=== PATIENT | male | born 2000 | race Hispanic/Latino ===

== ENCOUNTER 2024-08-15 19:31 | Observation (INO) | payer SELFPAY ==
[~2024-08-15] VITALS: Ht 177.8 cm; Wt 86.2 kg
[~2024-08-15 19:31] MED LIST: ONDANSETRON ODT4 MG PO
[2024-08-15 19:43] VITALS: PULSE 110; RESP 18; TEMP 98
[2024-08-15] MEDS ORDERED: D5.45%NS/KCL 20MEQ 1,000 ML IV SCH (21:15)
[2024-08-15] MEDS ORDERED: Morphine 2mg Syringe 2 MG/ML SYR IV PRN (21:15)
[2024-08-15] MEDS: ONDANSETRON HCL INJ 2MG/ML 2ML 2 MG/ML VIAL IV STA (22:00)
[2024-08-15] MEDS: FAMOTIDINE 20 MG/2 ML VIAL IV STA (22:00)
[2024-08-15] MEDS: SODIUM CHLORIDE 0.9% 1000ML 1,000 ML IV ONE (22:00)
[2024-08-15 23:52] VITALS: BP 151/89; PULSE 72; RESP 18; TEMP 97.4; O2SAT 100
[2024-08-15] MEDS: SODIUM CHLORIDE 0.9% 1000ML 1,000 ML IV SCH (23:58)
[2024-08-16] VITALS (7 sets, daily range): BP systolic 123–151; BP diastolic 66–89; PULSE 63–81; RESP 18–22; TEMP 97.4–98.6; O2SAT 99–100
[2024-08-16] MEDS: ONDANSETRON HCL INJ 2MG/ML 2ML 2 MG/ML VIAL IV PRN (02:21)
[2024-08-16 05:26] LABS: BASOPHILS % 0.3 % (0.0-1.0); HEMATOCRIT 48.8 % (38.2-49.6); HEMOGLOBIN 16.1 g/dL (14.0-18.0); LYMPHOCYTES # (AUTO) 2.7 (1.0-3.2); LYMPHOCYTES % 17.4 % (18.0-39.1); MEAN CORPUSCULAR HEMOGLOBIN 29.8 pg (28-32); MEAN CORPUSCULAR VOLUME 90.2 fL (81-99); MONOCYTES # (AUTO) 1.9 (0.2-0.8); MONOCYTES % 11.9 % (4.4-11.3); NEUTROPHILS # (AUTO) 10.9 (2.1-6.9); PLATELET COUNT 280 x10e3/uL (140-360); RED BLOOD COUNT 5.41 x10e6/uL (4.3-5.7); RED CELL DISTRIBUTION WIDTH 12.3 % (11.7-14.4)
[2024-08-16] MEDS: SODIUM CHLORIDE 0.9% 1000ML 1,000 ML IV ONE (07:21)
[2024-08-16 08:53] LABS: ALBUMIN 4.5 g/dL (3.5-5.0); ALBUMIN/GLOBULIN RATIO 1.3 (0.8-2.0); ANION GAP 20.6 mmol/L (8-16); BILIRUBIN,TOTAL 1.9 mg/dL (0.2-1.2); CALCIUM 9.4 mg/dL (8.4-10.2); CREATININE, SERUM 1.18 mg/dL (0.72-1.25); POTASSIUM 3.6 mmol/L (3.5-5.1); TOTAL PROTEIN 7.9 g/dL (6.5-8.1)
[2024-08-17] VITALS: BP 100/48; PULSE 63; RESP 16; TEMP 97.7; O2SAT 97
[2024-08-17 05:40] LABS: BASOPHILS % 0.5 % (0.0-1.0); EOSINOPHILS # (AUTO) 0.1 (0.0-0.4); HEMATOCRIT 44.6 % (38.2-49.6); LYMPHOCYTES # (AUTO) 3.4 (1.0-3.2); LYMPHOCYTES % 40.3 % (18.0-39.1); MEAN CORPUSCULAR HEMOGLOBIN 29.6 pg (28-32); MEAN CORPUSCULAR HGB CONC 33.6 g/dL (31-35); MONOCYTES % 12.3 % (4.4-11.3); NEUTROPHILS # (AUTO) 3.8 (2.1-6.9); NEUTROPHILS % 45.4 % (38.7-80.0); PLATELET COUNT 199 x10e3/uL (140-360); RED BLOOD COUNT 5.07 x10e6/uL (4.3-5.7); RED CELL DISTRIBUTION WIDTH 12.3 % (11.7-14.4); WHITE BLOOD COUNT 8.32 x10e3/uL (4.8-10.8)
[2024-08-17 05:57] VITALS: BP 120/72; PULSE 53; RESP 19; TEMP 99.3; O2SAT 100
[2024-08-17 06:28] LABS: ALBUMIN 3.7 g/dL (3.5-5.0); ALBUMIN/GLOBULIN RATIO 1.4 (0.8-2.0); ANION GAP 13.5 mmol/L (8-16); BILIRUBIN,TOTAL 1.3 mg/dL (0.2-1.2); CALCIUM 8.6 mg/dL (8.4-10.2); CREATININE, SERUM 0.9 mg/dL (0.72-1.25); POTASSIUM 3.5 mmol/L (3.5-5.1); TOTAL PROTEIN 6.4 g/dL (6.5-8.1)
[2024-08-17] MEDS ORDERED: ONDANSETRON ODT4 MG PO (07:45)
[2024-08-17 08:47] VITALS: BP 134/58; PULSE 73; RESP 19; TEMP 98.5; O2SAT 100
[2024-08-17 09:00] VITALS: BP 134/58; PULSE 73; RESP 19; TEMP 98.5; O2SAT 100
[2024-08-17 10:06] LABS: HEPATITIS A ANTIBODY IGM (P) Negative; HEPATITIS B CORE IGM (P) Negative; HEPATITIS B SURFACE AG (P) Negative; HEPATITIS C ANTIBODY Non Reactive
== END 2024-08-17 09:06 | disposition home or self-care (01) ==
LOC: FSED 19:50 → ERHOLD 21:16 → MED/SURG 23:43
PROVIDERS: ADMIT Family Medicine Adult Medicine; ATTEND Family Medicine Adult Medicine
DX: R11.15 Cyclical vomiting syndrome unrelated to migraine (principal); F12.10 Cannabis abuse, uncomplicated; E86.0 Dehydration; K52.9 Noninfective gastroenteritis and colitis, unspecified; D72.828 Other elevated white blood cell count; R74.8 Abnormal levels of other serum enzymes; R94.4 Abnormal results of kidney function studies; Z11.52 Encounter for screening for COVID-19
CPT/HCPCS: 0223U; 36415 ×2; 74176; 80053 ×3; 80307; 81003; 83518; 83605; 83690; 85025 ×3; 86308 ×2; 87040; 87400; 93005; 96374; 96375; 99252; 99284; G0378 ×3; J2405 ×2; J2543 ×2; J7030 ×3

== ENCOUNTER 2025-04-13 21:25 | Emergency (ER) | payer SELFPAY ==
[~2025-04-13] VITALS: Ht 177.8 cm; Wt 86.6 kg
[2025-04-13] MEDS: SODIUM CHLORIDE 0.9% 1000ML 1,000 ML IV ONE (22:31)
[2025-04-13] MEDS: ONDANSETRON HCL INJ 2MG/ML 2ML 2 MG/ML VIAL IV STA (22:31)
[2025-04-13] MEDS ORDERED: IOPAMIDOL 370 MG/ML 100 ML INFUS..BTL INJ ONE (23:21)
[2025-04-13] MEDS: LACTATED RINGER'S 1,000 ML INJ ONE (23:30)
[2025-04-14] MEDS ORDERED: ONDANSETRON ODT4 MG PO (00:29)
[2025-04-14 00:49] VITALS: PULSE 77; RESP 16; TEMP 97.9
[2025-04-14] MEDS: LACTATED RINGER'S 1,000 ML INJ ONE (01:07)
[2025-04-14 01:09] VITALS: BP 128/71; PULSE 77; RESP 16; TEMP 97.9; O2SAT 100
[2025-04-24] MEDS ORDERED: PANTOPRAZOLE SO40 MG PO (03:34)
[2025-04-24] MEDS ORDERED: MAALOX MAXIMUM355 ML PO (03:34)
[2025-04-24] MEDS ORDERED: ONDANSETRON ODT4 MG PO (03:34)
== END 2025-04-14 00:51 | disposition home or self-care (01) ==
LOC: FSED 21:29
DX: R11.2 Nausea with vomiting, unspecified (principal); F12.90 Cannabis use, unspecified, uncomplicated; R10.31 Right lower quadrant pain
CPT/HCPCS: 74177; 80048; 80076; 81003; 85025; 96374; 99284; J2405; J7030; J7121; Q9967